=== PATIENT | male | born 1990 | race African-American/Black ===

== ENCOUNTER 2018-01-03 02:32 | Emergency (ER) | payer SELFPAY | END 2018-01-03 03:01 | disposition home or self-care (01) | LOC: ERS 02:32 | DX: A63.0 Anogenital (venereal) warts (principal); F17.210 Nicotine dependence, cigarettes, uncomplicated; Z20.2 Contact with and (suspected) exposure to infections with a predominantly sexual mode of transmission | CPT/HCPCS: 99283 ==

== ENCOUNTER 2019-03-22 07:32 | Emergency (ER) | payer SELFPAY | END 2019-03-22 08:03 | disposition home or self-care (01) | LOC: ERS 07:32 | DX: K04.7 Periapical abscess without sinus (principal); F17.210 Nicotine dependence, cigarettes, uncomplicated | CPT/HCPCS: 99282 ==

== ENCOUNTER 2020-03-29 16:44 | Emergency (ER) | payer SELFPAY | END 2020-03-29 18:02 | disposition home or self-care (01) | LOC: ERS 16:44 | DX: K02.9 Dental caries, unspecified (principal); F17.210 Nicotine dependence, cigarettes, uncomplicated | CPT/HCPCS: 99283 ==